=== PATIENT | male | born 1930 | race African-American/Black ===

== ENCOUNTER → 2017-03-02 | Outpatient (CLI) | payer OTHER ==
[~2017-03-02] MED LIST: ACETAMINOPHEN325 M1 PO; ALLOPURINOL 10100 M1; ALLOPURINOL 10100 M1 PO; AMLODIPINE BESYL5 M1 PO; APAP500 PO; APAP650 PO; ARICEPT 5 MG TAB5 MG PO; AUGMENTIN 500-1 EACH PO; AZITHROMYCIN 2250 MG PO; CARBIDOPA-LEVO1 EAC6 PO; CIPROFLOXACIN500 M1 PO; COLACE100 MG PO; COUMADIN 5 MG TA5 M1 PO; CRANBERRY300 MG PO; DIFLUCAN150 MG PO; FLOMAX0.4 MG PO; GLYCOLAX POWDER17 GM PO; IRON325 PO; KEFLEX500 MG PO; LASIX 20 MG TAB20 MG PO; NORCO 5-325 TA1 EACH PO; NORVASC10 MG PO; NORVASC5 MG PO; PREDNISONE 5 MG5 M1; PREDNISONE 5 MG5 MG PO; TAMSULOSIN HCL0.4 M1 PO; TRIPLE PASTE TP; TYLENOL325 MG PO; ULTRAM 50MG TAB50 MG PO
== END ==
LOC: RAD 15:33
DX: J18.9 Pneumonia, unspecified organism (principal); R09.89 Other specified symptoms and signs involving the circulatory and respiratory systems